=== PATIENT | female | born 1995 | race African-American/Black ===

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

== ENCOUNTER 2017-03-06 14:52 | Emergency (ER) | payer OTHER ==
[~2017-03-06 14:52] MED LIST changes: +DOCU-27 PO; +FERR-26 PO; +IBUP-1060 PO; +OXYC-323 PO
--- NOTE | 2017-03-06 15:37 | RAD ---
Left hand, 3 views, 03/06/2017: History: Hand injury, pain No fracture or dislocation is identified. IMPRESSION: No significant left hand abnormality is detected.
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
--- NOTE | 2017-03-06 16:21 | RAD ---
CT of the head without contrast, 03/06/2017: History: Fall, injury The ventricles are within normal limits in size. There is no shift of the midline structures. There is no evidence of acute intracranial hemorrhage or mass effect. IMPRESSION: No acute intracranial abnormality is detected. PQRS Compliance Statement: One or more of the following individualized dose reduction techniques were utilized for this examination: 1. Automated exposure control 2. Adjustment of the mA and/or kV according to patient size 3. Use of iterative reconstruction technique
[2017-03-06 16:50] VITALS: BP 120/60
== END 2017-03-06 17:38 | disposition home or self-care (01) ==
LOC: ER 14:52
DX: S63.91XA Sprain of unspecified part of right wrist and hand, initial encounter (principal); S00.93XA Contusion of unspecified part of head, initial encounter; J45.909 Unspecified asthma, uncomplicated; Y04.0XXA Assault by unarmed brawl or fight, initial encounter; Y93.89 Activity, other specified; Y92.89 Other specified places as the place of occurrence of the external cause; Y99.8 Other external cause status
CPT/HCPCS: 70450; 73130; 81025; 99284-25

== ENCOUNTER 2017-08-19 12:34 | Emergency (ER) | payer OTHER ==
[~2017-08-19] VITALS: Ht 149.9 cm; Wt 46.3 kg
[~2017-08-19 12:34] MED LIST changes: +DOCU-109 PO; -DOCU-27 PO
--- NOTE | 2017-08-19 12:57 | PHYS DOC ---
Past Medical History Past Medical History: Asthma Past Surgical History: Additional Past Surgical Histo: five weeks ago Alcohol Use: None Drug Use: None Adult General Chief Complaint Chief Complaint: VAGINAL BLEEDING HPI HPI Patient is a 22 year old female presenting to the emergency department for evaluation of vaginal bleeding and vaginal discharge. This became more heavy last after being treated with the health department for chlamydia and gonorrhea. She has been taking pictures of it and appears that she has thick blood clots with a thick brownish discharge. She says that she is having some lower midline pain with the discharge but she denies any fevers chills nausea vomiting dysuria or hematuria. Patient says that she is on control and that she does not think that she is . She is in no obvious distress with normal vital signs except for tachycardia in the 110-120 range. Review of Systems Review of Systems Constitutional: Denies fever or chills [] Respiratory: Denies cough or shortness of breath [] Cardiovascular: No additional information not addressed in HPI [] GI: + abdominal pain. No nausea, vomiting, bloody stools or diarrhea [] : Denies dysuria or hematuria [] Musculoskeletal: Denies back pain or joint pain [] Neurologic: Denies headache, focal weakness or sensory changes [] Current Medications Current Medications Current Medications Medications (Trade) Dose Ordered Sig/[facility] Start Time Stop Time Status Last Admin Dose Admin Fentanyl Citrate (Fentanyl 2ml Vial) 50 mcg 1X ONCE 08/19/17 13:00 08/19/17 13:01 DC 08/19/17 13:08 50 MCG Sodium Chloride 1,000 ml @ 1,000 mls/hr 1X ONCE 08/19/17 13:00 08/19/17 13:59 DC 08/19/17 13:08 1,000 MLS/HR Allergies Allergies Allergies Coded Allergies Type Severity Reaction Last Updated Verified No Known Drug Allergies 11/20/15 No Physical Exam Physical Exam Constitutional: Well developed, well nourished, no acute distress, non-toxic appearance. [] Cardiovascular:Heart rate regular rhythm, no murmur [] Lungs & Thorax: Bilateral breath sounds clear to auscultation [] Abdomen: Bowel sounds normal, soft, no tenderness, no masses, no pulsatile masses. [] CHIEF PSYCHOLOGY: Vaginal bleeding noted but there is no vaginal discharge noted on exam. No cervical motion or adnexal tenderness. Back: No tenderness, no CVA tenderness. [] Extremities: No tenderness, no cyanosis, no clubbing, ROM intact, no edema. [] Neurologic: Alert and oriented X 3, normal motor function, normal sensory function, no focal deficits noted. [] Current Patient Data Vital Signs Vital Signs Date Time Temp Pulse Resp B/P (MAP) Pulse Ox O2 Delivery O2 Flow Rate FiO2 08/19/17 13:08 Room Air 08/19/17 12:40 98.6 121 18 140/63 (88) 99 98.6 Lab Values Laboratory Tests Test 08/19/17 12:40 08/19/17 12:50 08/19/17 13:05 Urine Collection Type Unknown Urine Color Yellow Urine Clarity Clear Urine pH 6.0 Urine Specific [place] 1.020 Urine Protein Negative mg/dL (NEG-TRACE) Urine Glucose (UA) Negative mg/dL (NEG) Urine Ketones (Stick) Negative mg/dL (NEG) Urine Blood Large (NEG) Urine Nitrite Negative (NEG) Urine Bilirubin Negative (NEG) Urine Urobilinogen Dipstick 0.2 mg/dL (0.2 mg/dL) Urine Leukocyte Esterase Small (NEG) Urine RBC >40 /HPF (0-2) Urine WBC 0 /HPF (0-4) Urine Squamous Epithelial Cells Few /LPF Urine Bacteria 0 /HPF (0-FEW) Urine Mucus Slight /LPF Urine Opiates Screen Neg (NEG) Urine Methadone Screen Neg (NEG) Urine Barbiturates Neg (NEG) Urine Phencyclidine Screen Neg (NEG) Urine Amphetamine/Methamphetamine Neg (NEG) Urine Benzodiazepines Screen Neg (NEG) Urine Cocaine Screen Neg (NEG) Urine Cannabinoids Screen Neg (NEG) Urine Ethyl Alcohol Neg (NEG) POC Urine HCG, Qualitative Hcg negative (Negative) White Blood Count 9.8 x10^3/uL (4.0-11.0) Red Blood Count 4.74 x10^6/uL (3.50-5.40) Hemoglobin 11.6 g/dL (12.0-15.5) L Hematocrit 36.0 % (36.0-47.0) Mean Corpuscular Volume 76 fL (79-100) L Mean Corpuscular Hemoglobin 25 pg (25-35) Mean Corpuscular Hemoglobin Concent 32 g/dL (31-37) Red Cell Distribution Width 16.8 % (11.5-14.5) H Platelet Count 419 x10^3/uL (140-400) H Neutrophils (%) (Auto) 78 % (31-73) H Lymphocytes (%) (Auto) 11 % (24-48) L Monocytes (%) (Auto) 8 % (0-9) Eosinophils (%) (Auto) 3 % (0-3) Basophils (%) (Auto) 0 % (0-3) Neutrophils # (Auto) 7.7 x10^3uL (1.8-7.7) Lymphocytes # (Auto) 1.1 x10^3/uL (1.0-4.8) Monocytes # (Auto) 0.8 x10^3/uL (0.0-1.1) Eosinophils # (Auto) 0.2 x10^3/uL (0.0-0.7) Basophils # (Auto) 0.0 x10^3/uL (0.0-0.2) Sodium Level 139 mmol/L (136-145) Potassium Level 3.5 mmol/L (3.5-5.1) Chloride Level 103 mmol/L (98-107) Carbon Dioxide Level 26 mmol/L (21-32) Anion Gap 10 (6-14) Blood Urea Nitrogen 5 mg/dL (7-20) L Creatinine 0.7 mg/dL (0.6-1.0) Estimated GFR (Cockcroft-Gault) 129.1 BUN/Creatinine Ratio 7 (6-20) Glucose Level 86 mg/dL (70-99) Calcium Level 9.1 mg/dL (8.5-10.1) Magnesium Level 1.8 mg/dL (1.8-2.4) Total Bilirubin 0.4 mg/dL (0.2-1.0) Aspartate Amino Transferase (AST) 14 U/L (15-37) L Alanine Aminotransferase (ALT) 14 U/L (14-59) Alkaline Phosphatase 90 U/L (46-116) Total Protein 8.2 g/dL (6.4-8.2) Albumin 4.0 g/dL (3.4-5.0) Albumin/Globulin Ratio 1.0 (1.0-1.7) Ethyl Alcohol Level < 10 mg/dL (0-10) Laboratory Tests 10/4/17 13:05 Laboratory Tests 08/19/17 13:05 Microbiology 08/19/17 Wet Prep - Final, Complete EKG EKG [] Radiology/Procedures Radiology/Procedures [] Course & Med Decision Making Course & Med Decision Making Patient has nonspecific lower midline tenderness with vaginal bleeding and vaginal discharge. His artery treated with Rocephin and Zithromax at the health department per the patient. I actually think that the patient is getting better but she says the pain is getting worse. I do not suspect ovarian torsion or other surgical cause to her pain at this time. Patient will be treated supportively as an outpatient with NSAIDs [place] and a weeklong prescription of doxycycline and told to follow with Dr. Hoffman in the next 2-3 days. Patient aware and agreeable with plan for discharge and verbalized understanding of the need for short-term CHIEF PSYCHOLOGY follow-up in the strict ED return precautions discussed worsening pain fevers vomiting or other general concerns. Dragon Disclaimer Dragon Disclaimer This electronic medical record was generated, in whole or in part, using a voice recognition dictation system. Departure Departure Impression: Primary Impression: Abdominal pain Additional Impression: DUB (dysfunctional uterine bleeding) Disposition: 01 HOME, SELF-CARE Condition: STABLE Referrals: NO PCP (PCP) KRISTIE HOFFMAN Jr, MD Patient Instructions: Uterine Bleeding, Dysfunctional Additional Instructions: TAKE 400MG OF IBUPROFEN EVERY 6 HOURS AND THE NORCO FOR BREAKTHROUGH PAIN. THE DOXYCYCLINE CAN GIVE YOU GASTRITIS AND YOU SHOULD STAY OUT OF THE SUN ON IT. FOLLOW WITH DR. HOFFMAN IN THE NEXT 2-3 DAYS AND COME BACK TOT HE ED WITH WORSENING PAIN, FEVERS, VOMITING, OR OTHER GENERAL CONCERNS. THANK YOU! Scripts Doxycycline Monohydrate (DOXYCYCLINE MONOHYDRATE) 100 Mg Capsule 1 CAP PO BID, #14 CAP Prov: HELEN GOLDSTEIN DO 08/19/17 Hydrocodone/Apap 5-325 (NORCO 5-325 TABLET) 1 Each Tablet 1 TAB PO PRN Q6HRS Y for PAIN, #10 TAB 0 Refills Prov: HELEN GOLDSTEIN DO 08/19/17 Problem Qualifiers Primary Impression: Abdominal pain Abdominal location: lower abdomen, unspecified Qualified Codes: R10.30 - Lower abdominal pain, unspecified HELEN GOLDSTEIN DO Aug 19, 2017 12:57
[2017-08-19] MEDS ORDERED: IV NORMAL SALINE 1000ML BAG 1,000 ML IV ONE (13:00)
[2017-08-19] MEDS ORDERED: fentaNYL PF VIAL 100 MCG/2 ML VIAL IV ONE (13:00)
[2017-08-19 13:07] LABS: BARBITURATES NEG (NEG); BENZODIAZEPINES NEG (NEG); CANNABINOIDS NEG (NEG); COCAINE NEG (NEG); METHADONE NEG (NEG); OPIATES NEG (NEG); PHENCYCLIDINE NEG (NEG)
[2017-08-19 13:10] LABS: BILIRUBIN,URINE NEGATIVE (NEG); GLUCOSE,URINE NEGATIVE (NEG); NITRITE,URINE NEGATIVE (NEG); PROTEIN,URINE NEGATIVE (NEG-TRACE); UROBILINOGEN,URINE 0.2 mg/dL (0.2 mg/dL)
[2017-08-19 13:16] LABS: BASO % 0 % (0-3); EOS % 3 % (0-3); HEMOGLOBIN 11.6 g/dL (12.0-15.5); LYMPH # 1.1 x10^3/uL (1.0-4.8); LYMPH % 11 % (24-48); MEAN CORPUSCULAR HEMOGLOBIN 25 pg (25-35); MEAN CORPUSCULAR HGB CONC 32 g/dL (31-37); MEAN CORPUSCULAR VOLUME 76 fL (79-100); MONO % 8 % (0-9); NEUT % 78 % (31-73); PLATELET COUNT 419 x10^3/uL (140-400); RED BLOOD COUNT 4.74 x10^6/uL (3.50-5.40); RED CELL DISTRIBUTION WIDTH 16.8 % (11.5-14.5); WHITE BLOOD COUNT 9.8 x10^3/uL (4.0-11.0)
[2017-08-19 13:31] LABS: BACTERIA,URINE 0 /HPF (0-FEW); RBC,URINE >40 /HPF (0-2); SQUAMOUS EPITHELIAL CELL,UR FEW /LPF; WBC,URINE 0 /HPF (0-4)
[2017-08-19 13:31] LABS: CALCIUM 9.1 mg/dL (8.5-10.1); CREATININE 0.7 mg/dL (0.6-1.0); GFR 129.1; POTASSIUM 3.5 mmol/L (3.5-5.1)
[2017-08-19 13:37] LABS: MAGNESIUM 1.8 mg/dL (1.8-2.4); TOTAL BILIRUBIN 0.4 mg/dL (0.2-1.0); TOTAL PROTEIN 8.2 g/dL (6.4-8.2)
[2017-08-19 14:05] VITALS: BP 113/64
[2017-08-19] MEDS ORDERED: DOXY100C14 PO (14:16)
[2017-08-19] MEDS ORDERED: HYDR-971 PO (14:16)
== END 2017-08-19 14:29 | disposition home or self-care (01) ==
LOC: ER 12:34
DX: N93.8 Other specified abnormal uterine and vaginal bleeding (principal); R10.30 Lower abdominal pain, unspecified; J45.909 Unspecified asthma, uncomplicated
CPT/HCPCS: 36415; 80053; 80307; 81001; 81025; 83735; 85025; 87086; 87491; 87591; 96361; 96374; 99284; G0480; J3010; J7030; Q0111; G0479

== ENCOUNTER 2017-11-03 17:14 | Emergency (ER) | payer OTHER ==
[~2017-11-03] VITALS: Ht 149.9 cm; Wt 46.3 kg
[~2017-11-03 17:14] MED LIST changes: +DOXY100C14 PO; +HYDR-971 PO
[2017-11-03 17:18] VITALS: BP 112/64
[2017-11-03] MEDS ORDERED: CYCL5TAB PO (17:38)
[2017-11-03] MEDS ORDERED: IBUP-1060 PO (17:38)
--- NOTE | 2017-11-03 17:38 | PHYS DOC ---
Past Medical History Past Medical History: Asthma, STD, Other Additional Past Medical Histor: Chlamydia Past Surgical History: Additional Past Surgical Histo: five weeks ago Alcohol Use: Occasionally Drug Use: None Adult General Chief Complaint Chief Complaint: SHOULDER INJURY [facility] HPI Patient is a 22 year old female presents to the ED complaining of pain to right shoulder times injury x one day. 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 States she pulled a muscle yesterday. States she was unable to show up to work today. States she hasnt taken anything for her pain. Describes the pain as sharp. Rates the pain as 5/ 10. Denies head/neck injury, LOC, vision changes, nausea/vomiting, chest pain or shortness of breath. Review of Systems Review of Systems Constitutional: Denies fever or chills [] Eyes: Denies change in visual acuity, redness, or eye pain [] HENT: Denies nasal congestion or sore throat [] Respiratory: Denies cough or shortness of breath [] Cardiovascular: No additional information not addressed in HPI [] GI: Denies abdominal pain, nausea, vomiting, bloody stools or diarrhea [] : Denies dysuria or hematuria [] Musculoskeletal: Complains of right shoulder pain. Denies back pain. Integument: Denies rash or skin lesions [] Neurologic: Denies headache, focal weakness or sensory changes [] Endocrine: Denies polyuria or polydipsia [] All other systems were reviewed and found to be within normal limits, except as documented in this note. Allergies Allergies Allergies Coded Allergies Type Severity Reaction Last Updated Verified No Known Drug Allergies 11/20/15 No Physical Exam Physical Exam Constitutional: Well developed, well nourished, no acute distress, non-toxic appearance. [] HENT: Normocephalic, atraumatic, oropharynx moist Neck: Normal range of motion, no tenderness, supple, no stridor. [] Cardiovascular:Heart rate regular rhythm, no murmur [] Lungs & Thorax: Bilateral breath sounds clear to auscultation [] Skin: Warm, dry, no erythema, no rash. [] Back: No tenderness, no CVA tenderness. [] Extremities: MUSCLE SPASM TO RIGHT SCAPULA REGION. NO BONY TENDERNESS. No tenderness, no cyanosis, no clubbing, ROM intact, no edema. [] Neurologic: Alert and oriented X 3, normal motor function, normal sensory function, no focal deficits noted. [] Psychologic: Affect normal, judgement normal, mood normal. [] Current Patient Data Vital Signs Vital Signs Date Time Temp Pulse Resp B/P (MAP) Pulse Ox O2 Delivery O2 Flow Rate FiO2 11/03/17 17:18 98.2 100 16 100 Room Air 98.2 EKG EKG [] Radiology/Procedures Radiology/Procedures []No bony tenderness. No x-ray warranted. Will prescribe anti-inflammatories and muscle relaxers to patient. Will give work note. Discussed follow-up with orthopedics if pain continues. Provided contact information/education. Discussed reasons to return to the ED. Patient understands and agrees with plan. Course & Med Decision Making Course & Med Decision Making Pertinent Labs and Imaging studies reviewed. (See chart for details) [] Dragon Disclaimer Dragon Disclaimer This electronic medical record was generated, in whole or in part, using a voice recognition dictation system. Departure Departure Impression: Primary Impression: Muscle strain Disposition: 01 HOME, SELF-CARE Condition: IMPROVED Referrals: NO PCP (PCP) AVERY MARC II, MD Patient Instructions: Muscle Strain Scripts Cyclobenzaprine Hcl (CYCLOBENZAPRINE HCL) 5 Mg Tablet 1 TAB PO TID, #12 TAB Prov: FRANCO OZUNA 11/03/17 Ibuprofen (IBUPROFEN) 800 Mg Tablet 800 MG PO PRN Q6HRS Y for INFLAMMATION, #20 TAB Prov: FRANCO OZUNA 11/03/17 FRANCO OZUNA Nov 03, 2017 17:38
[2017-11-10] MEDS ORDERED: DOCU-109 PO (01:02)
== END 2017-11-03 17:42 | disposition home or self-care (01) ==
LOC: ER 17:14
DX: S46.911A Strain of unspecified muscle, fascia and tendon at shoulder and upper arm level, right arm, initial encounter (principal); J45.909 Unspecified asthma, uncomplicated; X50.0XXA Overexertion from strenuous movement or load, initial encounter; Y93.89 Activity, other specified; Y99.8 Other external cause status; Y92.89 Other specified places as the place of occurrence of the external cause
CPT/HCPCS: 99283

== ENCOUNTER 2017-11-09 19:10 | Emergency (ER) | payer OTHER ==
[2017-11-09] MEDS ORDERED: ACETAMINOPHEN 325 MG TABLET. PO (20:15)
== END 2017-11-09 19:57 | disposition home or self-care (01) ==
LOC: ER 19:10
DX: S06.0X0A Concussion without loss of consciousness, initial encounter (principal); J45.909 Unspecified asthma, uncomplicated; Y08.89XA Assault by other specified means, initial encounter; Y93.89 Activity, other specified; Y99.8 Other external cause status; Y92.89 Other specified places as the place of occurrence of the external cause
CPT/HCPCS: 99281

== ENCOUNTER 2017-11-10 00:13 | Emergency (ER) | payer OTHER | END 2017-11-10 01:08 | disposition home or self-care (01) | LOC: ER 00:13 | DX: K64.4 Residual hemorrhoidal skin tags (principal); J45.909 Unspecified asthma, uncomplicated | CPT/HCPCS: 99282 ==

== ENCOUNTER 2018-02-12 17:13 | Emergency (ER) | payer OTHER ==
[2018-02-12] MEDS ORDERED: IPRATRPIUM/ALBUTEROL 0.5/2.5MG 3 ML NEBU. (17:51)
[2018-02-12] MEDS: IPRATRPIUM/ALBUTEROL 0.5/2.5MG 3 ML NEBU. NEB (17:53)
== END 2018-02-12 18:30 | disposition home or self-care (01) ==
LOC: ER 17:13
DX: J45.909 Unspecified asthma, uncomplicated (principal)
CPT/HCPCS: 94640; 99283-25; J7620

== ENCOUNTER 2018-03-31 22:31 | Emergency (ER) | payer OTHER | END 2018-03-31 23:21 | disposition home or self-care (01) | LOC: ER 22:31 | DX: S20.219A Contusion of unspecified front wall of thorax, initial encounter (principal); J45.909 Unspecified asthma, uncomplicated; V43.52XA Car driver injured in collision with other type car in traffic accident, initial encounter; Y93.89 Activity, other specified; Y99.8 Other external cause status; Y92.89 Other specified places as the place of occurrence of the external cause | CPT/HCPCS: 99282 ==

== ENCOUNTER 2018-04-26 05:25 | Emergency (ER) | payer OTHER ==
[2018-04-26] MEDS: MAGNESIUM CITRATE 296 ML SOLUTION. PO (05:59)
== END 2018-04-26 06:00 | disposition home or self-care (01) ==
LOC: ER 05:25
DX: K59.00 Constipation, unspecified (principal); K64.9 Unspecified hemorrhoids; J45.909 Unspecified asthma, uncomplicated
CPT/HCPCS: 99283

== ENCOUNTER 2018-07-06 14:35 | Emergency (ER) | payer OTHER ==
[~2018-07-06] VITALS: Ht 149.9 cm; Wt 44.9 kg
[~2018-07-06 14:35] MED LIST changes: +CYCL5TAB PO; -FERR-26 PO; +FERR325T14 PO; +NAPR-514 PO; +PHEN1SUP75 RC; +POLY17PO29 PO; +PRED50TA PO; +PROAIR HFA8.5 GM INH
[2018-07-06 15:22] LABS: BASO % 0 % (0-3); EOS # 0.1 x10^3/uL (0.0-0.7); EOS % 1 % (0-3); HEMOGLOBIN 12.6 g/dL (12.0-15.5); LYMPH % 30 % (24-48); MEAN CORPUSCULAR HEMOGLOBIN 27 pg (25-35); MEAN CORPUSCULAR HGB CONC 32 g/dL (31-37); MEAN CORPUSCULAR VOLUME 84 fL (79-100); MONO # 0.6 x10^3/uL (0.0-1.1); MONO % 9 % (0-9); NEUT # 3.9 x10^3uL (1.8-7.7); NEUT % 60 % (31-73); PLATELET COUNT 363 x10^3/uL (140-400); RED BLOOD COUNT 4.67 x10^6/uL (3.50-5.40); RED CELL DISTRIBUTION WIDTH 16.2 % (11.5-14.5); WHITE BLOOD COUNT 6.6 x10^3/uL (4.0-11.0)
[2018-07-06 15:26] LABS: BILIRUBIN,URINE NEGATIVE (NEG); CLARITY,URINE CLEAR; COLOR,URINE YELLOW; NITRITE,URINE POSITIVE (NEG); PH,URINE 7.5; PROTEIN,URINE NEGATIVE (NEG-TRACE)
[2018-07-06 15:28] LABS: CALCIUM 9.2 mg/dL (8.5-10.1); CREATININE 0.7 mg/dL (0.6-1.0); GFR 127.8; POTASSIUM 4.1 mmol/L (3.5-5.1)
[2018-07-06 15:34] LABS: BACTERIA,URINE MANY /HPF (0-FEW); RBC,URINE 0 /HPF (0-2); SQUAMOUS EPITHELIAL CELL,UR MANY /LPF
[2018-07-06 15:35] LABS: ALBUMIN 4.1 g/dL (3.4-5.0); TOTAL BILIRUBIN 0.2 mg/dL (0.2-1.0); TOTAL PROTEIN 8.1 g/dL (6.4-8.2)
[2018-07-06] MEDS: ONDANSETRON PF 4 MG/2 ML VIAL. IV ONE (15:44)
[2018-07-06] MEDS: IV NORMAL SALINE 1000ML BAG 1,000 ML IV SCH (15:44)
[2018-07-06] MEDS ORDERED: SULF1TAB24 PO (16:28)
[2018-07-06] MEDS ORDERED: ONDA4TAB7 PO (16:28)
[2018-07-06] MEDS ORDERED: PHEN-443 PO (16:28)
--- NOTE | 2018-07-06 16:28 | PHYS DOC ---
Past Medical History Past Medical History: Asthma, Constipation, Kidney Stone, Other Additional Past Medical Histor: Chlamydia Past Surgical History: Additional Past Surgical Histo: C-SEC X2 Alcohol Use: Occasionally Drug Use: Marijuana Adult General Chief Complaint Chief Complaint: FLANK PAIN HPI HPI Patient is a 23-year-old female who presents with complaint of lower abdominal discomfort with dysuria and urinary frequency for the last few days. Patient indicates that she has had a little bit of nausea and vomiting as well. She states that she is concerned that she is getting dehydrated due to the vomiting. She rates her pain to be a 5 out of 10 and states the pain is worsened with urination. She also indicates that she was recently diagnosed with kidney stones back in April but she denies any hematuria. Patient states that nothing improves her symptoms. She denies fever. Review of Systems Review of Systems Constitutional: Denies fever or chills [] Respiratory: Denies cough or shortness of breath [] Cardiovascular: Denies chest pain[] GI: Complains of lower abdominal discomfort with nausea and vomiting[] : Complains of dysuria and frequency[] Musculoskeletal: Denies back pain or joint pain [] All other systems were reviewed and found to be within normal limits, except as documented in this note. Current Medications Current Medications Current Medications Medications (Trade) Dose Ordered Sig/[facility] Start Time Stop Time Status Last Admin Dose Admin Ceftriaxone Sodium 50 ml @ 100 mls/hr 1X ONCE 07/06/18 16:15 07/06/18 16:44 DC 07/06/18 16:15 100 MLS/HR Ondansetron HCl (Zofran) 4 mg 1X ONCE 07/06/18 15:45 07/06/18 15:46 DC 07/06/18 15:44 4 MG Sodium Chloride 1,000 ml @ 1,000 mls/hr Q1H 07/06/18 15:05 07/06/18 16:04 DC 07/06/18 15:44 1,000 MLS/HR Allergies Allergies Allergies Coded Allergies Type Severity Reaction Last Updated Verified Latex, Natural Rubber Allergy Severe "FEELS LIKE WELTS & BREAK OUT ON THE INSIDE" 07/06/18 Yes Physical Exam Physical Exam Constitutional: Well developed, well nourished, no acute distress, non-toxic appearance. [] HENT: Normocephalic, atraumatic, bilateral external ears normal, oropharynx moist, no oral exudates, nose normal. [] Eyes: PERRLA, EOMI, conjunctiva normal, no discharge. [] Neck: Normal range of motion, no tenderness, supple, no stridor. [] Cardiovascular:Heart rate regular rhythm [] Lungs & Thorax: Bilateral breath sounds clear to auscultation [] Abdomen: Bowel sounds normal, soft, with suprapubic tenderness. [] Skin: Warm, dry, no erythema, no rash. [] Extremities: No tenderness, no cyanosis, no clubbing, ROM intact, no edema. [] Neurologic: Alert and oriented X 3, normal motor function, normal sensory function, no focal deficits noted. [] Current Patient Data Vital Signs Vital Signs Date Time Temp Pulse Resp B/P (MAP) Pulse Ox O2 Delivery O2 Flow Rate FiO2 07/06/18 17:19 88 15 126/64 (84) 97 Room Air 07/06/18 14:45 99.0 99.0 Lab Values Laboratory Tests Test 07/06/18 14:43 07/06/18 14:51 07/06/18 15:15 Urine Collection Type Void Urine Color Yellow Urine Clarity Clear Urine pH 7.5 Urine Specific [place] 1.020 Urine Protein Negative mg/dL (NEG-TRACE) Urine Glucose (UA) Negative mg/dL (NEG) Urine Ketones (Stick) Negative mg/dL (NEG) Urine Blood Negative (NEG) Urine Nitrite Positive (NEG) Urine Bilirubin Negative (NEG) Urine Urobilinogen Dipstick 1.0 mg/dL (0.2 mg/dL) Urine Leukocyte Esterase Small (NEG) Urine RBC 0 /HPF (0-2) Urine WBC 5-10 /HPF (0-4) Urine Squamous Epithelial Cells Many /LPF Urine Bacteria Many /HPF (0-FEW) Urine Mucus Mod /LPF POC Urine HCG, Qualitative Hcg negative (Negative) White Blood Count 6.6 x10^3/uL (4.0-11.0) Red Blood Count 4.67 x10^6/uL (3.50-5.40) Hemoglobin 12.6 g/dL (12.0-15.5) Hematocrit 39.0 % (36.0-47.0) Mean Corpuscular Volume 84 fL (79-100) Mean Corpuscular Hemoglobin 27 pg (25-35) Mean Corpuscular Hemoglobin Concent 32 g/dL (31-37) Red Cell Distribution Width 16.2 % (11.5-14.5) H Platelet Count 363 x10^3/uL (140-400) Neutrophils (%) (Auto) 60 % (31-73) Lymphocytes (%) (Auto) 30 % (24-48) Monocytes (%) (Auto) 9 % (0-9) Eosinophils (%) (Auto) 1 % (0-3) Basophils (%) (Auto) 0 % (0-3) Neutrophils # (Auto) 3.9 x10^3uL (1.8-7.7) Lymphocytes # (Auto) 2.0 x10^3/uL (1.0-4.8) Monocytes # (Auto) 0.6 x10^3/uL (0.0-1.1) Eosinophils # (Auto) 0.1 x10^3/uL (0.0-0.7) Basophils # (Auto) 0.0 x10^3/uL (0.0-0.2) Sodium Level 139 mmol/L (136-145) Potassium Level 4.1 mmol/L (3.5-5.1) Chloride Level 103 mmol/L (98-107) Carbon Dioxide Level 29 mmol/L (21-32) Anion Gap 7 (6-14) Blood Urea Nitrogen 11 mg/dL (7-20) Creatinine 0.7 mg/dL (0.6-1.0) Estimated GFR (Cockcroft-Gault) 127.8 BUN/Creatinine Ratio 16 (6-20) Glucose Level 71 mg/dL (70-99) Calcium Level 9.2 mg/dL (8.5-10.1) Total Bilirubin 0.2 mg/dL (0.2-1.0) Aspartate Amino Transferase (AST) 15 U/L (15-37) Alanine Aminotransferase (ALT) 17 U/L (14-59) Alkaline Phosphatase 89 U/L (46-116) Total Protein 8.1 g/dL (6.4-8.2) Albumin 4.1 g/dL (3.4-5.0) Albumin/Globulin Ratio 1.0 (1.0-1.7) Lipase 127 U/L (73-393) Laboratory Tests 07/06/18 15:15 Laboratory Tests 07/06/18 15:15 EKG EKG [] Radiology/Procedures Radiology/Procedures [] Course & Med Decision Making Course & Med Decision Making Pertinent Labs and Imaging studies reviewed. (See chart for details) [] Dragon Disclaimer Dragon Disclaimer This electronic medical record was generated, in whole or in part, using a voice recognition dictation system. Departure Departure Impression: Primary Impression: Urinary tract infection Disposition: HOME, SELF-CARE Condition: STABLE Referrals: NO PCP (PCP) Patient Instructions: Urinary Tract Infection Scripts Ondansetron Hcl (ZOFRAN) 4 Mg Tablet 4 MG PO PRN TID PRN for NAUSEA, #15 nausea/vomiting Prov: EYAL COMER Jr. DO 07/06/18 Phenazopyridine Hcl (PHENAZOPYRIDINE HCL) 100 Mg Tablet 1 TAB PO TID PRN for URINARY PAIN, #9 TAB Prov: EYAL COMER Jr. DO 07/06/18 Sulfamethoxazole/Trimethoprim (BACTRIM DS TABLET) 1 Each Tablet 1 TAB PO BID, #14 TAB Prov: EYAL COMER Jr. DO 07/06/18 Problem Qualifiers Primary Impression: Urinary tract infection Urinary tract infection type: site unspecified Hematuria presence: without hematuria Qualified Codes: N39.0 - Urinary tract infection, site not specified EYAL COMER Jr. DO Jul 06, 2018 16:28
[2018-07-06 17:19] VITALS: BP 126/64
--- NOTE | 2018-07-11 15:27 | VNOTE ---
CALL BACK NOTE CALL BACK Microbiology 07/06/18 Urine Culture - Final, Complete 07/06/18 Urine Culture Result 1 (LATISHA) - Final, Complete 07/06/18 Antimicrobic Susceptibility - Final, Complete 07/11/18 prescription changed to Macrobid 100 mg by mouth twice a day 7 days, this prescription was called into [facility] at [address] SIVAKUMAR MENSAH APRN Jul 11, 2018 15:27
== END 2018-07-06 17:30 | disposition home or self-care (01) ==
LOC: ER 14:35
DX: N39.0 Urinary tract infection, site not specified (principal); E86.0 Dehydration; J45.909 Unspecified asthma, uncomplicated; Z98.890 Other specified postprocedural states; Z87.442 Personal history of urinary calculi; Z91.040 Latex allergy status
CPT/HCPCS: 36415; 80053; 81001; 81025; 83690; 85025; 87086; 96361; 96365; 96375; 99284; J0690; J2405; J7030

== ENCOUNTER 2018-09-19 12:35 | Emergency (ER) | payer OTHER ==
[~2018-09-19] VITALS: Ht 124.5 cm; Wt 46.3 kg
[~2018-09-19 12:35] MED LIST changes: +METR500T PO; +ONDA4TAB7 PO; +PHEN-443 PO; +SULF1TAB24 PO
[2018-09-19 12:50] VITALS: BP 123/68
--- NOTE | 2018-09-19 13:22 | PHYS DOC ---
Past Medical History Past Medical History: No Pertinent History, Asthma, Constipation, Kidney Stone , Other Additional Past Medical Histor: Chlamydia Past Surgical History: Additional Past Surgical Histo: C-SEC X2 Alcohol Use: Occasionally Drug Use: Marijuana Adult General Chief Complaint Chief Complaint: TEST [facility] Patient is a 23 year old female who presents requesting a test, patient states she's had variable results on home tests. She states some of them have been faintly positive. Patient denies any other symptoms. She states she was on depo shots until April and her menstrual cycles have been irregular. She believes her last menstrual cycle was sometimes in July. Review of Systems Review of Systems Constitutional: Denies fever or chills [] Eyes: Denies change in visual acuity, redness, or eye pain [] HENT: Denies nasal congestion or sore throat [] Respiratory: Denies cough or shortness of breath [] Cardiovascular: No additional information not addressed in [facility] [] GI: Request for test Denies abdominal pain, nausea, vomiting, bloody stools or diarrhea [] : Denies dysuria or hematuria [] Musculoskeletal: Denies back pain or joint pain [] Integument: Denies rash or skin lesions [] Neurologic: Denies headache, focal weakness or sensory changes [] All other systems were reviewed and found to be within normal limits, except as documented in this note. Allergies Allergies Allergies Coded Allergies Type Severity Reaction Last Updated Verified Latex, Natural Rubber Allergy Severe "FEELS LIKE WELTS & BREAK OUT ON THE INSIDE" 07/06/18 Yes Physical Exam Physical Exam Constitutional: Well developed, well nourished, no acute distress, non-toxic appearance. [] HENT: Normocephalic, atraumatic, bilateral external ears normal, oropharynx moist, no oral exudates, nose normal. [] Eyes: PERRLA, EOMI, conjunctiva normal, no discharge. [] Neck: Normal range of motion, no tenderness, supple, no stridor. [] Cardiovascular:Heart rate regular rhythm, no murmur [] Lungs & Thorax: Bilateral breath sounds clear to auscultation [] Abdomen: Bowel sounds normal, soft, no tenderness, no masses, no pulsatile masses. [] Skin: Warm, dry, no erythema, no rash. [] Back: No tenderness, no CVA tenderness. [] Extremities: No tenderness, no cyanosis, no clubbing, ROM intact, no edema. [] Neurologic: Alert and oriented X 3, normal motor function, normal sensory function, no focal deficits noted. [] Psychologic: Affect normal, judgement normal, mood normal. [] Current Patient Data Vital Signs Vital Signs Date Time Temp Pulse Resp B/P (MAP) Pulse Ox O2 Delivery O2 Flow Rate FiO2 09/19/18 12:50 97.9 98 18 123/68 (86) 100 Room Air 97.9 EKG EKG [] Radiology/Procedures Radiology/Procedures [] Course & Med Decision Making Course & Med Decision Making Pertinent Labs and Imaging studies reviewed. (See chart for details) This is a 23-year-old female patient presenting to the ED today requesting a test. Negative urine hCG. Patient was discharged back home. Dragon Disclaimer Dragon Disclaimer This electronic medical record was generated, in whole or in part, using a voice recognition dictation system. Departure Departure Impression: Primary Impression: test negative Disposition: 01 HOME, SELF-CARE Condition: STABLE Referrals: NO PCP (PCP) KRISTIE KLINE Jr, MD follow up in one week Additional Instructions: Your test in the emergency room was negative. Follow-up with the OB/ TRAVOGRAPH OPERATOR as needed. BERNARDO MCLAUGHLIN APRN Sep 19, 2018 13:22
== END 2018-09-19 13:30 | disposition home or self-care (01) ==
LOC: ER 12:35
DX: Z32.02 Encounter for pregnancy test, result negative (principal); N92.6 Irregular menstruation, unspecified; J45.909 Unspecified asthma, uncomplicated; Z91.040 Latex allergy status
CPT/HCPCS: 81025; 99283

== ENCOUNTER 2018-12-17 12:26 | Emergency (ER) | payer OTHER ==
[~2018-12-17] VITALS: Ht 152.4 cm; Wt 46.3 kg
[2018-12-17 12:26] VITALS: BP 107/68
[~2018-12-17 12:26] MED LIST changes: +ALBU2.5V8 INH; +HYDR-3164 PO; -HYDR-971 PO; -OXYC-323 PO; +OXYC1TAB15 PO; -PROAIR HFA8.5 GM INH
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
--- NOTE | 2018-12-17 13:11 | RAD ---
RIGHT HAND, VIEWS 3 Indication: SWOLLEN ON LATERAL SIDE NEAR INDEX FINGER, PAIN GOES UP INTO FIRST TWO DIGITS Findings: There is no acute fracture or dislocation. Bony articulations are normal. There is no bony erosion. Mineralization is normal. There is no radiographically apparent soft tissue swelling or radiopaque foreign body. IMPRESSION: No acute fracture or dislocation. Electronically signed by: Ren Ahumada MD (12/17/2018 1:07 PM) [id number]
[2018-12-17] MEDS ORDERED: NAPR-695 PO (13:21)
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
== END 2018-12-17 13:29 | disposition home or self-care (01) ==
LOC: ER 12:26 → EEVIPCON 12:26 → ER 13:29
DX: S63.8X1A Sprain of other part of right wrist and hand, initial encounter (principal); S00.83XA Contusion of other part of head, initial encounter; J45.909 Unspecified asthma, uncomplicated; Z98.890 Other specified postprocedural states; Z91.040 Latex allergy status; Y08.89XA Assault by other specified means, initial encounter; Y93.89 Activity, other specified; Y92.89 Other specified places as the place of occurrence of the external cause; Y99.8 Other external cause status
CPT/HCPCS: 70450; 70486; 73130; 99284

== ENCOUNTER 2021-10-05 15:26 | Emergency (ER) | payer SELFPAY ==
[~2021-10-05] VITALS: Ht 149.9 cm; Wt 59.0 kg
[~2021-10-05 15:26] MED LIST changes: +DOXY-181 PO; -DOXY100C14 PO; +NAPR-695 PO
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
[2021-10-05] MEDS ORDERED: IBUPROFEN 200 MG TABLET. PO ONE (16:00)
[2021-10-05] MEDS ORDERED: CYCLOBENZAPRINE 10 MG TABLET. PO ONE (16:00)
--- NOTE | 2021-10-05 16:52 | RAD ---
Exam performed: 2 views of the chest. Indication: Reason: right chest pain / Spl. Instructions: / History: Date of Service: 10/05/2021 4:46 PM. Comparison : None available Findings: PA and lateral radiographs of the chest reveal a normal cardiomediastinal contour. The lungs are catia r. No pleural fluid is seen. The visualized osseous structures are unremarkable. Impression: No acute cardiopulmonary process seen. Electronically signed by: Sunni Baltazar MD (10/05/2021 4:50 PM) [facility]
[2021-10-05 17:15] LABS: BILIRUBIN,URINE NEGATIVE (NEG); CLARITY,URINE CLEAR; COLOR,URINE YELLOW; NITRITE,URINE NEGATIVE (NEG); PH,URINE 6.5 (<5.0-8.0); PROTEIN,URINE NEGATIVE (NEG-TRACE)
[2021-10-05 17:20] LABS: BACTERIA,URINE FEW /HPF (0-FEW); RBC,URINE 0 /HPF (0-2)
[2021-10-05] MEDS ORDERED: CYCL5TAB PO (17:26)
[2021-10-05] MEDS ORDERED: CEPH500C PO (17:26)
[2021-10-05] MEDS ORDERED: IBUP-1007 PO (17:26)
[2021-10-05 17:45] VITALS: BP 95/53
== END 2021-10-05 17:52 | disposition home or self-care (01) ==
LOC: ER 15:26
DX: N39.0 Urinary tract infection, site not specified (principal); M54.41 Lumbago with sciatica, right side; G89.11 Acute pain due to trauma; R07.89 Other chest pain; J45.909 Unspecified asthma, uncomplicated; Z91.040 Latex allergy status; V87.7XXA Person injured in collision between other specified motor vehicles (traffic), initial encounter; Y93.89 Activity, other specified; Y92.488 Other paved roadways as the place of occurrence of the external cause; Y99.8 Other external cause status
CPT/HCPCS: 71046; 81001; 81025; 87086; 99285-25